=== PATIENT | female | born 2000 | race American Indian/Alaskan Native ===

== ENCOUNTER 2020-11-20 10:57 | Emergency (ER) | payer BC ==
[2020-11-20] MEDS ORDERED: ACETAMINOPHEN 325 MG TAB ONE (11:23)
[2020-11-20] MEDS ORDERED: ACETAMINOPHEN 325 MG TAB PO ONE (11:24)
--- NOTE | 2020-11-20 11:26 | Event Note ---
ED Screening Note Date of service: 11/20/20 Time: 11:25 ED Screening Note: 19-year-old -Maldivian female presents with complaints of cough x1 week now with shortness of breath x5 days States she tested negative for Covid 1 week ago Also has some vomiting, denies abdominal pain Heart rate 110, temp 102.5 Pulse ox 99% on room air This initial assessment/diagnostic orders/clinical plan/treatment(s) is/are subject to change based on patients health status, clinical progression and re-assessment by fellow clinical providers in the ED. Further treatment and workup at subsequent clinical providers discretion. Patient/guardian urged not to elope from the ED as their condition may be serious if not clinically assessed and managed. Initial orders include: Labs Chest x-ray Tylenol
[2020-11-20 14:38] LABS: Basophils % (Auto) 0.4 % (0.0-1.8); Hematocrit 39.4 % (30.3-42.9); Hemoglobin 12.7 gm/dl (10.1-14.3); Lymphocytes # (Auto) 1.1 K/mm3 (1.2-5.4); Lymphocytes % (Auto) 34.3 % (13.4-35.0); Mean Corpuscular HGB Conc 32 % (30-34); Mean Corpuscular Volume 80 fl (79-97); Monocytes # (Auto) 0.3 K/mm3 (0.0-0.8); Monocytes % (Auto) 10.5 % (0.0-7.3); Platelet Count 157 K/mm3 (140-440); Red Blood Count 4.91 M/mm3 (3.65-5.03); Red Cell Distribution Width 16.2 % (13.2-15.2)
[2020-11-20 15:05] LABS: Alanine Aminotransferase 8 units/L (7-56); Albumin 3.9 g/dL (3.9-5); BUN/Creatinine Ratio 10; Blood Urea Nitrogen 10 mg/dL (7-17); Calcium 8.5 mg/dL (8.4-10.2); Hemolysis Index 6
--- NOTE | 2020-11-20 15:13 | XRay Report ---
CHEST 2 VIEWS INDICATION / CLINICAL INFORMATION: SOB, cough, tachycardia, fever. COMPARISON: None available. FINDINGS: SUPPORT DEVICES: None. HEART / MEDIASTINUM: No significant abnormality. LUNGS / PLEURA: There are patchy peripheral opacities in the left lung. No pneumothorax. ADDITIONAL FINDINGS: No significant additional findings. IMPRESSION: 1. Patchy pulmonary opacities in left lung likely indicating pneumonia. Signer Name: Jewel Velez MD Signed: 11/20/2020 3:08 PM Workstation Name: [id number]
--- NOTE | 2020-11-20 15:34 | Emergency Department Report ---
- General Chief Complaint: Fever Stated Complaint: FEVER Time Seen by Provider: 11/20/20 11:24 Source: patient Mode of arrival: Ambulatory Limitations: No Limitations - History of Present Illness Initial Comments: Patient is a 19-year-old female who presents emergency room with complaints of fever and chills that began a week ago. She has associated headache, generalized body aches, mild dry cough, one episode of vomiting. She states that she took a COVID-19 test 6 days ago and reports it was negative. She denies any shortness of breath, chest pain, abdominal pain, diarrhea, urinary symptoms. She denies any known sick contacts or recent travel. No past medical history. No allergies medications. Last menstrual cycle 11/06/2020. - Related Data Previous Rx's Medication Instructions Recorded Last Taken Type Azithromycin [Zithromax Z-ROB] 250 mg PO DAILY 5 Days #6 tablet 11/20/20 Unknown Rx Prednisone [predniSONE 10 mg 10 mg PO .TAPER #1 tab.ds.pk 11/20/20 Unknown Rx (6-Day Pack, 21 Tabs)] Promethazine [Phenergan] 25 mg PO Q8HR PRN #7 tab 11/20/20 Unknown Rx Allergies Allergy/AdvReac Type Severity Reaction Status Date / Time No Known Allergies Allergy Unverified 11/20/20 11:28 ED Review of Systems ROS: Stated complaint: FEVER Other details as noted in HPI Comment: All other systems reviewed and negative ED Past Medical Hx - Past Medical History Previous Medical History?: No - Social History Smoking Status: Never Smoker Substance Use Type: None - Medications Home Medications: Home Medications Medication Instructions Recorded Confirmed Last Taken Type Azithromycin [Zithromax Z-ROB] 250 mg PO DAILY 5 Days #6 tablet 11/20/20 Unknown Rx Prednisone [predniSONE 10 mg 10 mg PO .TAPER #1 tab.ds.pk 11/20/20 Unknown Rx (6-Day Pack, 21 Tabs)] Promethazine [Phenergan] 25 mg PO Q8HR PRN #7 tab 11/20/20 Unknown Rx ED Physical Exam - General Limitations: No Limitations General appearance: alert, in no apparent distress - Head Head exam: Present: atraumatic, normocephalic - Eye Eye exam: Present: normal appearance - ENT ENT exam: Present: mucous membranes moist - Respiratory Respiratory exam: Present: normal lung sounds bilaterally. Absent: respiratory distress, wheezes, rales, rhonchi, stridor, chest wall tenderness, accessory muscle use, decreased breath sounds, prolonged expiratory - Cardiovascular Cardiovascular Exam: Present: regular rate, normal rhythm, normal heart sounds. Absent: systolic murmur, diastolic murmur, rubs, gallop - Neurological Exam Neurological exam: Present: alert, oriented X3 - Psychiatric Psychiatric exam: Present: normal affect, normal mood - Skin Skin exam: Present: warm, dry, intact ED Course Vital Signs 11/20/20 11/20/20 11/20/20 11:23 11:29 16:00 Temperature 102.3 F H 98.6 F Pulse Rate 109 H 92 H Respiratory 20 20 6 L Rate Blood Pressure 137/115 117/71 O2 Sat by Pulse 98 96 Oximetry ED Medical Decision Making - Lab Data Result diagrams: 11/20/20 12:40 11/20/20 12:40 Lab Results 11/20/20 11/20/20 11/20/20 Range/Units 12:40 12:40 12:40 WBC 3.2 L (4.5-11.0) K/mm3 RBC 4.91 (3.65-5.03) M/mm3 Hgb 12.7 (10.1-14.3) gm/dl Hct 39.4 (30.3-42.9) % MCV 80 (79-97) fl MCH 26 L (28-32) pg MCHC 32 (30-34) % RDW 16.2 H (13.2-15.2) % Plt Count 157 (140-440) K/mm3 Lymph % (Auto) 34.3 (13.4-35.0) % [place] % (Auto) 10.5 H (0.0-7.3) % Eos % (Auto) 0.0 (0.0-4.3) % Baso % (Auto) 0.4 (0.0-1.8) % Lymph # (Auto) 1.1 L (1.2-5.4) K/mm3 [place] # (Auto) 0.3 (0.0-0.8) K/mm3 Eos # (Auto) 0.0 (0.0-0.4) K/mm3 Baso # (Auto) 0.0 (0.0-0.1) K/mm3 Seg Neutrophils % 54.8 (40.0-70.0) % Seg Neutrophils # 1.8 (1.8-7.7) K/mm3 Sodium 137 (137-145) mmol/L Potassium 4.1 (3.6-5.0) mmol/L Chloride 101.7 (98-107) mmol/L Carbon Dioxide 22 (22-30) mmol/L Anion Gap 17 mmol/L BUN 10 (7-17) mg/dL Creatinine 1.0 (0.6-1.2) mg/dL Estimated GFR > 60 ml/min BUN/Creatinine Ratio 10 % Glucose 95 (65-100) mg/dL Lactic Acid 1.10 (0.7-2.0) mmol/L Calcium 8.5 (8.4-10.2) mg/dL Total Bilirubin 0.30 (0.1-1.2) mg/dL AST 16 (5-40) units/L ALT 8 (7-56) units/L Alkaline Phosphatase 55 (35-129) units/L Total Protein 6.9 (6.3-8.2) g/dL Albumin 3.9 (3.9-5) g/dL Albumin/Globulin Ratio 1.3 % HCG, Qual (Negative) 11/20/20 Range/Units 12:40 WBC (4.5-11.0) K/mm3 RBC (3.65-5.03) M/mm3 Hgb (10.1-14.3) gm/dl Hct (30.3-42.9) % MCV (79-97) fl MCH (28-32) pg MCHC (30-34) % RDW (13.2-15.2) % Plt Count (140-440) K/mm3 Lymph % (Auto) (13.4-35.0) % [place] % (Auto) (0.0-7.3) % Eos % (Auto) (0.0-4.3) % Baso % (Auto) (0.0-1.8) % Lymph # (Auto) (1.2-5.4) K/mm3 [place] # (Auto) (0.0-0.8) K/mm3 Eos # (Auto) (0.0-0.4) K/mm3 Baso # (Auto) (0.0-0.1) K/mm3 Seg Neutrophils % (40.0-70.0) % Seg Neutrophils # (1.8-7.7) K/mm3 Sodium (137-145) mmol/L Potassium (3.6-5.0) mmol/L Chloride (98-107) mmol/L Carbon Dioxide (22-30) mmol/L Anion Gap mmol/L BUN (7-17) mg/dL Creatinine (0.6-1.2) mg/dL Estimated GFR ml/min BUN/Creatinine Ratio % Glucose (65-100) mg/dL Lactic Acid (0.7-2.0) mmol/L Calcium (8.4-10.2) mg/dL Total Bilirubin (0.1-1.2) mg/dL AST (5-40) units/L ALT (7-56) units/L Alkaline Phosphatase (35-129) units/L Total Protein (6.3-8.2) g/dL Albumin (3.9-5) g/dL Albumin/Globulin Ratio % HCG, Qual Negative (Negative) Vital Signs 11/20/20 11/20/20 11/20/20 11:23 11:29 16:00 Temperature 102.3 F H 98.6 F Pulse Rate 109 H 92 H Respiratory 20 20 6 L Rate Blood Pressure 137/115 117/71 O2 Sat by Pulse 98 96 Oximetry - Radiology Data Radiology results: report reviewed Chest x-ray Radiologist Jewel Velez MD Impression patchy pulmonary opacities in the left lung likely indicating pneumonia - Medical Decision Making Patient is a 19-year-old female who presents emergency room with complaints of fever and chills that began a week ago. She has associated headache, generalized body aches, mild dry cough, one episode of vomiting. She states that she took a COVID-19 test 6 days ago and reports it was negative. She denies any shortness of breath, chest pain, abdominal pain, diarrhea, urinary symptoms. She denies any known sick contacts or recent travel. No past medical history. No allergies medications. Last menstrual cycle 11/06/2020. Initial vitals with elevated temperature, heart rate, blood pressure which all improved to normal upon repeat and after Tylenol administration. Labs are stable. hCG is negative. Chest x-ray Impression patchy pulmonary opacities in the left lung likely indicating pneumonia. Patient is presenting with the symptoms during COVID-19 pandemic, discussed COVID-19 with patient, discussed return p recautions, discussed outpatient testing. Patient does not have any hypoxia. Patient does not meet hospital criteria for COVID-19 admission or for COVID-19 hospital testing. Discussed very strict return precautions with patient. Patient given prescription for azithromycin, Phenergan, prednisone. Advised patient Please take medication as prescribed. Please increase your fluid intake over the next several days. Follow-up with a primary care doctor for reexamination. Return to emergency room immediately for any new or worsening symptoms including but not limited to difficulty breathing, shortness of breath, severe chest pain, unable to tolerate by mouth intake, etc. Please self quaran jamila for 10 days from the onset of your symptoms. Please do not go out in public. If you are around others at home please wear a mask. If you need to cough or sneeze please do so in a napkin and immediately throw it away and immediately wash your hands. Wash your hands frequently. Wipe everything down. Recommend for you to get COVID-19 testing, may have this done at primary care doctor, health department, [facility], etc. Critical care attestation.: If time is entered above; I have spent that time in minutes in the direct care of this critically ill patient, excluding procedure time. ED Disposition Clinical Impression: Pneumonia Qualifiers: Pneumonia type: due to unspecified organism Laterality: left Lung location: lower lobe of lung Qualified Code(s): J18.9 - Pneumonia, unspecified organism Disposition: DC-01 TO HOME OR SELFCARE Is pt being admited?: No Does the pt Need Aspirin: No Condition: Stable Instructions: Community-Acquired Pneumonia, Adult, Bacterial Pneumonia (ED) Additional Instructions: Please take medication as prescribed. Please increase your fluid intake over the next several days. Follow-up with a primary care doctor for reexamination. Return to emergency room immediately for any new or worsening symptoms including but not limited to difficulty breathing, shortness of breath, severe chest pain, unable to tolerate by mouth intake, etc. Please self quarantine for 10 days from the onset of your symptoms. Please do not go out in public. If you are around others at home please wear a mask. If you need to cough or sneeze please do so in a napkin and immediately throw it away and immediately wash your hands. Wash your hands frequently. Wipe everything down. Recommend for you to get COVID-19 testing, may have this done at primary care doctor, health department, [facility], etc. Prescriptions: Promethazine [Phenergan] 25 mg PO Q8HR PRN #7 tab PRN Reason: Nausea And Vomiting Prednisone [predniSONE 10 mg (6-Day Pack, 21 Tabs)] 10 mg PO .TAPER #1 tab.ds.pk Azithromycin [Zithromax Z-ROB] 250 mg PO DAILY 5 Days #6 tablet Referrals: PRIMARY CAREMD [Primary Care Provider] - 2-3 Days JOSE DALE MD [Staff Physician] - 2-3 Days [facility] [Provider Group] - 2-3 Days Forms: Work/School Release Form(ED) Time of Disposition: 15:32 Print Language: BELARUSIAN
[2020-11-20 16:04] VITALS: BP 117/71
== END 2020-11-20 16:10 | disposition home or self-care (01) ==
LOC: ED 10:57
DX: J18.9 Pneumonia, unspecified organism (principal); Z79.2 Long term (current) use of antibiotics; Z79.899 Other long term (current) drug therapy
CPT/HCPCS: 36415; 71046; 80053; 82140; 84703; 85025

== ENCOUNTER 2021-06-09 13:32 | Emergency (ER) | payer BC ==
[2021-06-09 14:38] VITALS: BP 104/63
[2021-06-09 15:08] LABS: Basophils % (Auto) 0.5 % (0.0-1.8); Eosinophils # (Auto) 0.1 K/mm3 (0.0-0.4); Eosinophils % (Auto) 1.5 % (0.0-4.3); Hematocrit 29.6 % (36.0-42.0); Lymphocytes # (Auto) 2.1 K/mm3 (1.5-6.5); Lymphocytes % (Auto) 41.6 % (33.0-48.0); Mean Corpuscular HGB Conc 34 % (30-34); Mean Corpuscular Volume 86 fl (78-102); Monocytes # (Auto) 0.5 K/mm3 (0.0-0.8); Monocytes % (Auto) 9.7 % (0.0-7.3); Platelet Count 297 K/mm3 (140-440); Red Blood Count 3.44 M/mm3 (3.65-5.03); Red Cell Distribution Width 16.9 % (13.2-15.2)
[2021-06-09 16:10] LABS: Bilirubin,Urine NEG (Negative); Blood,Urine LG (Negative); Color,Urine Yellow (Yellow); Mucus,Urine FEW /HPF; Protein,Urine <15 mg/dL mg/dL (Negative); Urobilinogen,Urine < 2.0 mg/dL (<2.0)
[2021-06-09 16:11] LABS: RBC,Urine > 182.0 /HPF (0.0-6.0)
--- NOTE | 2021-06-09 16:15 | Emergency Department Report ---
ED Female HPI - General Chief complaint: Vaginal Bleeding Stated complaint: HEAVY MENSTRAL Time Seen by Provider: 06/09/21 15:48 Source: patient Mode of arrival: Ambulatory Limitations: No Limitations - History of Present Illness Initial comments: 13-year-old female was brought to the ER today by by her older sister with complaints of abnormal vaginal bleeding. Sister reports that patient started having menstrual cycles at age 9. She states that since then patient has been having irregular menstrual cycles. She states that there were times when patient misses her period for a month or 2 and then there are times when she do start her menstrual cycle she bleeds for a long time. Patient states that she started her menstrual cycle May 27 and she has been bleeding since. The sister states that she became concerned because it appeared that the bleeding was heavier, and she noticed large clots in the toilet bowl. Patient states that she has been changing about 2-3 pads per day and they are typically soaked with blood. She reports mild intermittent low abdominal cramping. She denies any UTI symptoms or any abnormal vaginal discharge. Patient states that she is not sexually active. She denies any control. Sister states that patient does not have any underlying medical conditions and she is not on any blood thinners. MD Complaint: vaginal bleeding -: days(s) (since may 27 ) - Related Data Previous Rx's Medication Instructions Recorded Last Taken Type Azithromycin [Zithromax Z-ROB] 250 mg PO DAILY 5 Days #6 tablet 11/20/20 Unknown Rx Prednisone [predniSONE 10 mg 10 mg PO .TAPER #1 tab.ds.pk 11/20/20 Unknown Rx (6-Day Pack, 21 Tabs)] Promethazine [Phenergan] 25 mg PO Q8HR PRN #7 tab 11/20/20 Unknown Rx Allergies Allergy/AdvReac Type Severity Reaction Status Date / Time No Known Allergies Allergy Verified 06/09/21 14:38 ED Review of Systems ROS: Stated complaint: HEAVY MENSTRAL Other details as noted in HPI Comment: All other systems reviewed and negative Constitutional: denies: chills, fever Eyes: denies: eye pain, eye discharge, vision change ENT: denies: ear pain, throat pain Respiratory: denies: cough, shortness of breath, SOB with exertion, SOB at rest, wheezing Cardiovascular: denies: chest pain, palpitations, dyspnea on exertion, edema, syncope, paroxysmal nocturnal dyspnea Gastrointestinal: abdominal pain. denies: nausea, vomiting, diarrhea, constipation, hematemesis, melena Genitourinary: abnormal menses. denies: urgency, dysuria, frequency, hematuria, discharge Musculoskeletal: denies: back pain, joint swelling, arthralgia Skin: denies: rash, lesions, change in color, change in hair/nails, pruritus Neurological: denies: headache, weakness, numbness, paresthesias, confusion, abnormal gait, vertigo Psychiatric: denies: anxiety, depression, auditory hallucinations, visual hallucinations, homicidal thoughts, suicidal thoughts ED Past Medical Hx - Social History Smoking Status: Never Smoker Substance Use Type: None - Medications Home Medications: Home Medications Medication Instructions Recorded Confirmed Last Taken Type Azithromycin [Zithromax Z-ROB] 250 mg PO DAILY 5 Days #6 tablet 11/20/20 Unknown Rx Prednisone [predniSONE 10 mg 10 mg PO .TAPER #1 tab.ds.pk 11/20/20 Unknown Rx (6-Day Pack, 21 Tabs)] Promethazine [Phenergan] 25 mg PO Q8HR PRN #7 tab 11/20/20 Unknown Rx ED Physical Exam - General Limitations: No Limitations General appearance: alert, in no apparent distress - Head Head exam: Present: atraumatic, normocephalic, normal inspection - Eye Eye exam: Present: normal appearance, PERRL, EOMI Pupils: Present: normal accommodation - ENT ENT exam: Present: normal exam, mucous membranes moist, TM's normal bilaterally - Neck Neck exam: Present: normal inspection, full ROM - Respiratory Respiratory exam: Present: normal lung sounds bilaterally. Absent: respiratory distress, wheezes, rales, rhonchi - Cardiovascular Cardiovascular Exam: Present: regular rate, normal rhythm, normal heart sounds - GI/Abdominal GI/Abdominal exam: Present: soft. Absent: distended, tenderness, guarding, rebound - Neurological Exam Neurological exam: Present: alert, oriented X3, CN II-XII intact, normal gait - Psychiatric Psychiatric exam: Present: normal affect, normal mood - Skin Skin exam: Present: intact ED Course Vital Signs 06/09/21 14:37 Temperature 98.6 F Pulse Rate 94 Respiratory 18 Rate Blood Pressure 104/63 [Left] O2 Sat by Pulse 100 Oximetry ED Medical Decision Making - Lab Data Result diagrams: 06/09/21 14:49 - Medical Decision Making CBC reviewed -H&H shows mild anemia with a hemoglobin of 10 and hematocrit of 29.6. hCG negative. Urinalysis does not suggest UTI at this time. Patient overall is well-appearing, not toxic and not in any acute distress. She appears well-hydrated. She is neurologically intact. She has a soft nontender abdomen. Her vital signs are stable. Discussed lab results with patient and sister. Recommend that patient follows up with either switchboard installer or [facility] for further evaluation of her abnormal bleeding. At this time there is no indication for any additional testing, admission or specialist consult. Both patient and sister expressed understanding of instructions and agree with plan. Patient stable at time of discharge. Critical care attestation.: If time is entered above; I have spent that time in minutes in the direct care of this critically ill patient, excluding procedure time. ED Disposition Clinical Impression: Abnormal menstrual cycle, Mild anemia Disposition: TO HOME OR SELFCARE Is pt being admited?: No Does the pt Need Aspirin: No Condition: Stable Instructions: Abnormal Uterine Bleeding, Iron Deficiency Anemia, Pediatric Additional Instructions: I recommend that you follow-up with one of the [facility] listed on your discharge instructions for better regulation of your menstrual cycles. You can take Tylenol and ibuprofen as needed for pain. Return to the ER if your symptoms changes or worsens in any way. Referrals: [facility] [Provider Group] - 3-5 Days [facility] [Provider Group] - 3-5 Days [facility] [Provider Group] - 3-5 Days Time of Disposition: 16:17
== END 2021-06-09 18:17 | disposition home or self-care (01) ==
LOC: EDBD → ED 13:32
DX: N92.6 Irregular menstruation, unspecified (principal); D64.9 Anemia, unspecified; Z79.899 Other long term (current) drug therapy
CPT/HCPCS: 36415; 81001; 84702; 84703; 85025; 87086